=== PATIENT | male | born 1985 | race Caucasian/White ===

== ENCOUNTER 2017-07-31 09:40 | Emergency (ER) | payer SELFPAY ==
[~2017-07-31] VITALS: Ht 182.9 cm; Wt 83.6 kg
[2017-07-31] MEDS ORDERED: HYDROcodone/APAP 7.5-325MG/15ML UDC PO ONE (10:30)
[2017-07-31 10:32] LABS: BASOPHILS # (AUTO) 0.02 x10^3/uL (0-0.1); BASOPHILS % (AUTO) 0 % (0-1); EOSINOPHILS # (AUTO) 0.17 x10^3/uL (0-0.4); EOSINOPHILS % (AUTO) 1 % (1-7); LYMPHOCYTES # (AUTO) 1.33 x10^3/uL (1-3.4); LYMPHOCYTES % (AUTO) 8 % (22-44); MD NO; MEAN CORPUSCULAR HEMOGLOBIN 29.4 pg (27.5-34.5); MEAN CORPUSCULAR HGB CONC 34.4 g/dL (33.2-36.2); MEAN CORPUSCULAR VOLUME 85.3 fL (81-97); MEAN PLATELET VOLUME 7.6 fL (7.4-10.4); MONOCYTES # (AUTO) 0.55 x10^3/uL (0.2-0.8); MONOCYTES % (AUTO) 3 % (2-9); NEUTROPHILS % (AUTO) 87 % (42-75); PLATELET COUNT 342 x10^3/uL (130-400); RED BLOOD COUNT 4.96 x10^6/uL (4.38-5.82)
[2017-07-31 10:39] LABS: ALBUMIN 3.8 g/dL (3.4-5.0); ANION GAP 6 mmol/L (5-15); CALCIUM 9.3 mg/dL (8.5-10.1); CHLORIDE 105 mmol/L (98-107); CREATININE 1.51 mg/dL (0.7-1.3)
[2017-07-31 10:41] LABS: MICROSCOPIC AUTO
[2017-07-31 10:42] LABS: CULTURE INDICATED? YES
[2017-07-31] MEDS ORDERED: HYDROcodone/APAP 7.5-325MG/15ML UDC ONE (12:01)
[2017-07-31 13:15] VITALS: BP 98/60
== END 2017-07-31 13:29 | disposition home or self-care (01) ==
LOC: ED 10:54
DX: N30.01 Acute cystitis with hematuria (principal); E86.0 Dehydration; R05 Cough; J45.909 Unspecified asthma, uncomplicated
CPT/HCPCS: 36415; 71046; 76770; 80048; 81001; 82040; 83605; 84145; 85025; 87040; 87086; 99285